=== PATIENT | female | born 1950 | race Caucasian/White ===

== ENCOUNTER 2019-02-09 01:09 | Outpatient (CLI) | payer MEDICARE, OTHER, SELFPAY ==
--- NOTE | 2019-02-09 11:00 | DI.RAD_ITS ---
EXAM: XR HIP RT COMPLETE AP PELVIS INDICATION: RT HIP JOINT PAIN, [id number]. COMPARISON: No exams were available for comparison TECHNIQUE: 2D digital imaging was performed. FINDINGS: Three views were obtained. There is slight loss of the cartilaginous joint spaces of both hips superi florian. Minimal degenerative changes of the SI joints noted bilaterally. No other significant abnormali ty seen IMPRESSION:
== END 2019-02-09 01:29 ==
PROVIDERS: PCP Nurse Practitioner Family; Visit Provider Nurse Practitioner Family
DX: M25.551 Pain in right hip (principal); M53.3 Sacrococcygeal disorders, not elsewhere classified; M16.11 Unilateral primary osteoarthritis, right hip
CPT/HCPCS: 73502

== ENCOUNTER 2019-02-25 09:44 | Outpatient (REF) | payer MEDICARE, OTHER, SELFPAY ==
[2019-02-25 20:22] LABS: Calculated LDL 113 mg/dL; Cholesterol 179 mg/dL (50-200); HDL Cholesterol 42 mg/dL (40-60); Triglyceride 122 mg/dL (30-150)
== END 2019-02-25 10:04 ==
LOC: NCHCN 09:44
PROVIDERS: PCP Nurse Practitioner Family; Visit Provider Nurse Practitioner Family
DX: E78.5 Hyperlipidemia, unspecified (principal)
CPT/HCPCS: 80061

== ENCOUNTER 2020-09-26 11:49 | Outpatient (REF) | payer MEDICARE, OTHER, SELFPAY ==
[2020-09-26 16:12] LABS: ALT 37 U/L (14-59); AST 20 U/L (15-37); Albumin 3.8 g/dL (3.4-5.0); Alkaline Phosphatase 89 U/L (46-116); Anion Gap 7.1 mmol/L (3-11); BUN 16 mg/dL (7-18); Bilirubin, Total 0.5 mg/dL (0.2-1.0); CO2 28.9 mmol/L (21.0-32.0); CREATININE 0.8 mg/dL (0.55-1.02); Calcium 8.6 mg/dL (8.5-10.1); Calculated LDL 71 mg/dL (<100); Chloride 110 mmol/L (98-107); Cholesterol 129 mg/dL (<200); Glucose 79 mg/dL (74-106); HDL Cholesterol 44 mg/dL (40-60); Potassium 4.2 mmol/L (3.5-5.1); Sodium 146 mmol/L (136-145); Total Protein 6.5 g/dL (6.4-8.2); Triglyceride 73 mg/dL (<150)
== END 2020-09-26 11:50 | disposition home or self-care (01) ==
LOC: NCHCN 11:49
PROVIDERS: PCP Nurse Practitioner Family; Visit Provider Nurse Practitioner Family
DX: I10 Essential (primary) hypertension (principal); E78.5 Hyperlipidemia, unspecified
CPT/HCPCS: 80053; 80061

== ENCOUNTER 2020-12-20 11:32 | Outpatient (REF) | payer MEDICARE, OTHER, SELFPAY ==
[2020-12-22 11:34] LABS: COVID-19 RT-PCR UVMMC Result Negative (Negative)
== END 2020-12-20 11:33 | disposition home or self-care (01) ==
LOC: NCHCN 11:32
PROVIDERS: PCP Nurse Practitioner Family; Visit Provider Nurse Practitioner Family
DX: Z20.822 Contact with and (suspected) exposure to COVID-19 (principal)
CPT/HCPCS: U0003

== ENCOUNTER 2021-03-29 17:13 | Outpatient (REF) | payer MEDICARE, OTHER, SELFPAY ==
[2021-04-06 03:02] LABS: Methadone-by GC-MS Negative ng/mL (Cutoff: 100)
== END 2021-03-29 17:14 | disposition home or self-care (01) ==
LOC: NCHCN 17:13
PROVIDERS: PCP Nurse Practitioner Family; Visit Provider Nurse Practitioner Family
DX: M79.7 Fibromyalgia (principal)
CPT/HCPCS: 80358

== ENCOUNTER 2021-09-14 20:08 | Outpatient (REF) | payer MEDICARE, OTHER, SELFPAY | END 2021-09-14 20:09 | disposition home or self-care (01) | LOC: NCHCN 20:08 | PROVIDERS: PCP Nurse Practitioner Family; Visit Provider Nurse Practitioner Family | DX: M79.7 Fibromyalgia (principal); Z51.81 Encounter for therapeutic drug level monitoring | CPT/HCPCS: 80373 ==

== ENCOUNTER 2021-09-19 16:27 | Outpatient (REF) | payer MEDICARE, OTHER, SELFPAY ==
[2021-09-19 19:24] LABS: ALT 43 U/L (14-59); AST 27 U/L (15-37); Alkaline Phosphatase 94 U/L (46-116); Anion Gap 8.6 mmol/L (3-11); BUN 21 mg/dL (7-18); Bilirubin, Total 0.5 mg/dL (0.2-1.0); CO2 28.4 mmol/L (21.0-32.0); CREATININE 0.8 mg/dL (0.55-1.02); Calcium 8.8 mg/dL (8.5-10.1); Chloride 108 mmol/L (98-107); Glucose 85 mg/dL (74-106); Potassium 4.3 mmol/L (3.5-5.1); Sodium 145 mmol/L (136-145)
[2021-09-19 19:32] LABS: Hemoglobin A1C 5.3 % (<5.7)
== END 2021-09-19 16:28 | disposition home or self-care (01) ==
LOC: NCHCN 16:27
PROVIDERS: PCP Nurse Practitioner Family; Visit Provider Nurse Practitioner Family
DX: I10 Essential (primary) hypertension (principal); E78.5 Hyperlipidemia, unspecified; R79.89 Other specified abnormal findings of blood chemistry
CPT/HCPCS: 80053; 83036

== ENCOUNTER 2022-04-24 18:09 | Outpatient (REF) | payer MEDICARE, OTHER, SELFPAY | END 2022-04-24 18:10 | disposition home or self-care (01) | LOC: NCHCN 18:09 | PROVIDERS: PCP Nurse Practitioner Family; Visit Provider Nurse Practitioner Family | DX: R30.0 Dysuria (principal) | CPT/HCPCS: 87077; 87086; 87186; 87480; 87510; 87660 ==

== ENCOUNTER 2022-09-18 17:54 | Outpatient (REF) | payer MEDICARE, OTHER, SELFPAY | END 2022-09-18 17:55 | disposition home or self-care (01) | LOC: NCHCN 17:54 | PROVIDERS: PCP Nurse Practitioner Family; Visit Provider Nurse Practitioner Family | DX: M79.7 Fibromyalgia (principal); Z79.899 Other long term (current) drug therapy | CPT/HCPCS: 80373 ==

== ENCOUNTER 2022-09-25 15:08 | Outpatient (REF) | payer MEDICARE, OTHER, SELFPAY ==
[2022-09-25 19:23] LABS: ALT 31 U/L (14-59); AST 23 U/L (15-37); Albumin 3.8 g/dL (3.4-5.0); Alkaline Phosphatase 102 U/L (46-116); Anion Gap 4.2 mmol/L (3-11); BUN 15 mg/dL (7-18); Bilirubin, Total 0.4 mg/dL (0.2-1.0); CO2 31.8 mmol/L (21.0-32.0); CREATININE 0.8 mg/dL (0.55-1.02); Calcium 9.1 mg/dL (8.5-10.1); Calculated LDL 58 mg/dL (<100); Chloride 108 mmol/L (98-107); Cholesterol 121 mg/dL (<200); Estimated GFR 79.71 (mL/min/1.73m2); Glucose 89 mg/dL (74-106); HDL Cholesterol 49 mg/dL (40-60); Potassium 4.3 mmol/L (3.5-5.1); Sodium 144 mmol/L (136-145); Total Protein 7.1 g/dL (6.4-8.2); Triglyceride 74 mg/dL (<150)
== END 2022-09-25 15:09 | disposition home or self-care (01) ==
LOC: NCHCN 15:08
PROVIDERS: PCP Nurse Practitioner Family; Visit Provider Nurse Practitioner Family
DX: I10 Essential (primary) hypertension (principal); E78.5 Hyperlipidemia, unspecified
CPT/HCPCS: 80053; 80061

== ENCOUNTER 2022-11-09 08:52 | Outpatient (REF) | payer MEDICARE, SELFPAY ==
[2022-11-09 19:25] LABS: Vitamin D 25 Total 26.8 ng/mL (30-100)
== END 2022-11-09 08:53 | disposition home or self-care (01) ==
LOC: LBN 08:52
PROVIDERS: PCP Nurse Practitioner Family; Visit Provider Internal Medicine Endocrinology, Diabetes & Metabolism
DX: M81.8 Other osteoporosis without current pathological fracture (principal)
CPT/HCPCS: 82306

== ENCOUNTER 2023-03-18 18:54 | Outpatient (REF) | payer MEDICARE, SELFPAY ==
[2023-03-22 07:36] LABS: O-desmethyltramadol 24932 ng/mL (Cutoff:25); Tramadol 11452 ng/mL (Cutoff:25)
== END 2023-03-18 18:55 | disposition home or self-care (01) ==
LOC: NCHCN 18:54
PROVIDERS: PCP Nurse Practitioner Family; Visit Provider Nurse Practitioner Family
DX: M79.7 Fibromyalgia (principal); Z51.81 Encounter for therapeutic drug level monitoring; Z79.899 Other long term (current) drug therapy
CPT/HCPCS: 80373

== ENCOUNTER 2023-10-23 12:59 | Outpatient (REF) | payer MEDICARE, SELFPAY ==
[2023-10-23 20:13] LABS: ALT 33 U/L (14-59); AST 27 U/L (15-37); Albumin 3.9 g/dL (3.4-5.0); Alkaline Phosphatase 89 U/L (46-116); Anion Gap 4.8 mmol/L (3-11); BUN 19 mg/dL (7-18); Bilirubin, Total 0.42 mg/dL (0.2-1.0); CO2 31.2 mmol/L (21.0-32.0); CREATININE 0.9 mg/dL (0.55-1.02); Calcium 9.2 mg/dL (8.5-10.1); Calculated LDL 72 mg/dL (<100); Chloride 106 mmol/L (98-107); Cholesterol 142 mg/dL (<200); Estimated GFR 68.77 (mL/min/1.73m2); Glucose 86 mg/dL (74-106); HDL Cholesterol 53 mg/dL (40-60); Potassium 4.3 mmol/L (3.5-5.1); Sodium 142 mmol/L (136-145); Total Protein 7.3 g/dL (6.4-8.2); Triglyceride 85 mg/dL (<150)
== END 2023-10-23 13:00 | disposition home or self-care (01) ==
LOC: NCHCN 12:59
PROVIDERS: PCP Nurse Practitioner Family; Visit Provider Nurse Practitioner Family
DX: E78.5 Hyperlipidemia, unspecified (principal); I10 Essential (primary) hypertension
CPT/HCPCS: 80053; 80061

== ENCOUNTER 2024-11-24 11:22 | Outpatient (REF) | payer MEDICARE, SELFPAY ==
[2024-11-24 19:30] LABS: ALT 33 U/L (14-59); AST 22 U/L (15-37); Albumin 3.9 g/dL (3.4-5.0); Alkaline Phosphatase 130 U/L (46-116); Anion Gap 5.1 mmol/L (3-11); BUN 15 mg/dL (7-18); Bilirubin, Total 0.4 mg/dL (0.2-1.0); CO2 29.9 mmol/L (21.0-32.0); Calcium 9.2 mg/dL (8.5-10.1); Calculated LDL 73 mg/dL (<100); Chloride 108 mmol/L (98-107); Cholesterol 142 mg/dL (<200); Estimated GFR 78.24 (mL/min/1.73m2); Glucose 86 mg/dL (74-106); HDL Cholesterol 51 mg/dL (>or=50); Potassium 4.3 mmol/L (3.5-5.1); Sodium 143 mmol/L (136-145); TSH (W/Ref FT4) 1.49 uIU/mL (0.36-3.74); Total Protein 7.3 g/dL (6.4-8.2); Triglyceride 94 mg/dL (<150)
== END 2024-11-24 11:23 | disposition home or self-care (01) ==
LOC: NCHCN 11:22
PROVIDERS: PCP Nurse Practitioner Family; Visit Provider Nurse Practitioner Family
DX: E78.5 Hyperlipidemia, unspecified (principal)
CPT/HCPCS: 80053; 80061; 82670; 84443

== ENCOUNTER 2025-01-26 19:39 | Outpatient (REF) | payer MEDICARE, SELFPAY ==
[2025-01-26 20:20] LABS: Anion Gap 6.5 mmol/L (3-11); BUN 16 mg/dL (7-18); CO2 30.5 mmol/L (21.0-32.0); Calcium 9.4 mg/dL (8.5-10.1); Chloride 108 mmol/L (98-107); Estimated GFR 67.92 (mL/min/1.73m2); Glucose 95 mg/dL (74-106); Magnesium 2.5 mg/dL (1.8-2.4); Potassium 3.7 mmol/L (3.5-5.1); Sodium 145 mmol/L (136-145)
== END 2025-01-26 19:40 | disposition home or self-care (01) ==
LOC: NCHCN 19:39
PROVIDERS: PCP Nurse Practitioner Family; Visit Provider Nurse Practitioner Family
DX: M81.0 Age-related osteoporosis without current pathological fracture (principal)
CPT/HCPCS: 80048; 83735; 84100

== ENCOUNTER 2025-03-22 11:03 | Outpatient (REF) | payer MEDICARE, SELFPAY ==
[2025-03-22 19:51] LABS: Magnesium 2.2 mg/dL (1.6-2.6)
[2025-03-22 19:52] LABS: ALT 22 U/L (10-49); AST 27 U/L (<34); Albumin 4.2 g/dL (3.4-5.0); Alkaline Phosphatase 93 U/L (46-116); Anion Gap 6 mmol/L (3-11); BUN 17 mg/dL (9-23); Bilirubin, Total 0.50 mg/dL (0.2-1.2); CO2 29.0 mmol/L (20.0-31.0); Calcium 8.7 mg/dL (8.3-10.6); Chloride 110 mmol/L (98-107); Glucose 85 mg/dL (74-106); Potassium 4.3 mmol/L (3.5-5.1); Sodium 145 mmol/L (136-145); Total Protein 6.9 g/dL (5.7-8.2)
== END 2025-03-22 11:04 | disposition home or self-care (01) ==
LOC: NCHCN 11:03
PROVIDERS: PCP Nurse Practitioner Family; Visit Provider Nurse Practitioner Family
DX: I10 Essential (primary) hypertension (principal)
CPT/HCPCS: 80053; 83735